=== PATIENT | male | born 1990 | race Caucasian/White ===

== ENCOUNTER → 2025-04-13 08:45 | Outpatient (CLI) | payer OTHER, SELFPAY ==
--- NOTE | 2025-04-13 08:48 | DI.MRI.S_ITS ---
PROCEDURE: MR LUMBAR SPINE WO CON INDICATIONS: radiculopathy TECHNIQUE: Noncontrast sagittal T1 spin echo and T2 fast echo, sagittal STIR, and T2 fast spin echo through the lumbar spine. In cases with scoliosis, additional coronal T2 fast spin echo may be performed. COMPARISON: None. FINDINGS: Image quality: Excellent. Alignment and Curvature: Straightening of the normal lumbar lordosis. Bone Marrow: Marrow is of normal overall signal. No acute vertebral body compression fractures. Spinal Cord: Conus medullaris terminates at the L1 level. Visualized cord demonstrates normal signal and size. Paraspinous Soft Tissues: No paravertebral masses. T12-L1: Normal appearance. L1-L2: Normal appearance. L2-L3: Normal appearance. L3-L4: Normal appearance. L4-L5: Disc desiccation and mild diffuse disc bulge with small superimposed central disc protrusion and right subarticular disc extrusion. Facet arthropathy. Mild central canal stenosis. Narrowing of the right lateral recess with possible impingement the descending right L5 nerve root. No significant neural foraminal stenosis. L5-S1: Disc desiccation and diffuse disc bulge with small superimposed central disc protrusion and posterior annular tear. No central canal stenosis. No neural foraminal stenosis. IMPRESSION: Degenerative changes of the lower lumbar spine as described above with narrowing of the right lateral recess at L4-5 and possible impingement of the descending right L5 nerve root. Dictated by: Linus Patel M.D. on 04/13/2025 at 12:59 Approved by: Linus Patel M.D. on 04/13/2025 at 13:02
== END ==
PROVIDERS: PCP Physician Assistant; Referring Provider Physician Assistant; Visit Provider Physician Assistant
DX: M54.16 Radiculopathy, lumbar region (principal); M48.061 Spinal stenosis, lumbar region without neurogenic claudication; M51.369 Other intervertebral disc degeneration, lumbar region without mention of lumbar back pain or lower extremity pain; M51.379 Other intervertebral disc degeneration, lumbosacral region without mention of lumbar back pain or lower extremity pain; M47.816 Spondylosis without myelopathy or radiculopathy, lumbar region
CPT/HCPCS: 72148